=== PATIENT | female | born 1955 | race Caucasian/White ===

== ENCOUNTER 2018-04-29 20:17 | Outpatient (CLI) | payer OTHER ==
--- NOTE | 2018-04-30 02:42 | Ultrasound Report ---
Reason: HX OF THYROID NODULES, LAST US 2014 Procedure Date: 04/29/2018 Accession Number: [id number] / [id number] Procedure: US - Head or Neck Soft Tissue CPT Code: FULL RESULT: EXAM: THYROID ULTRASOUND EXAM DATE: 04/29/2018 09:01 PM. CLINICAL HISTORY: HX OF THYROID NODULES, LAST US 2013. COMPARISON: 12/06/2014 10:57 AM. TECHNIQUE: Real time sonographic imaging of the thyroid was performed by the printer small print shop. Multiple tour sales representative static images were saved for review. FINDINGS: THYROID GLAND: Right Lobe: 4.4 x 2.1 x 1.7 cm, volume 8 cc. Heterogeneous echotexture. Right Lobe Nodules: Small hypoechoic nodules are again seen. The largest now measures 1.1 x 1.0 x 0.7 cm. Left Lobe: 4.6 x 1.8 x 1.7 cm, volume 7 cc. Heterogeneous echotexture. Left Lobe Nodules: Small hypoechoic nodules are again seen, the largest measuring 0.7 x 0.5 x 0.4 cm. Isthmus: 0.3 cm AP. Isthmic Nodules: None. LYMPH NODES: No adenopathy demonstrated in the central or lateral compartment. OTHER: None. IMPRESSION: Small hypoechoic nodules bilaterally. Fine needle aspiration not recommended by BELKIS criteria. Management recommendations are based on 2015 [place] [employer] Management Guidelines for Adult Patients with Thyroid Nodules and Differentiated Thyroid Cancer. RADIA
== END 2018-04-29 20:18 | disposition home or self-care (01) ==
LOC: DI 20:17
PROVIDERS: ATTEND Family Medicine
DX: E04.2 Nontoxic multinodular goiter (principal)
CPT/HCPCS: 76536

== ENCOUNTER 2019-09-10 13:43 | Emergency (ER) | payer BC ==
--- NOTE | 2019-09-10 14:19 | ED Physician Documentation ---
History of Present Illness - Stated complaint Stated Complaint: CHEST PAIN - Chief complaint Chief Complaint: Cardiac - History obtained from History obtained from: Patient - History of Present Illness Timing: How many weeks ago (1) Pain level max: 5 Pain level now: 1 - Additonal information Additional information: 63-year-old female presents the emergency department complaint of chest pain. This is been ongoing for the past week. Happening several times throughout the day. She states initially it started when she was exerting herself she would feel lightheaded, dizzy, short of breath and a tightness across her chest like her clothes were too tight. It is now been occurring at rest over the past 2 da ys. Today she states that the pain increased. Nothing makes worse. It seems to be better with rest, however today that did not improve her symptoms. She has never had a cardiac stress test. 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 No history of acute coronary syndrome. Currently is asymptomatic. Took aspirin prior to arrival Review of Systems Ten Systems: 10 systems reviewed and negative Constitutional: denies: Fever, Chills Ears: denies: Ear pain Nose: denies: Rhinorrhea / runny nose, Congestion Cardiac: denies: Palpitations Respiratory: reports: Dyspnea. denies: Cough, Hemoptysis, Wheezing GI: denies: Abdominal Pain, Nausea, Vomiting, Diarrhea : denies: Dysuria Skin: denies: Rash Musculoskeletal: denies: Neck pain, Back pain Neurologic: denies: Headache PD PAST MEDICAL HISTORY - Past Medical History Past Medical History: Yes - Past Surgical History Past Surgical History: Yes General: Cholecystectomy - Allergies Allergies/Adverse Reactions: Allergies Allergy/AdvReac Type Severity Reaction Status Date / Time hydromorphone [From Dilaudid] Allergy Emesis Verified 09/10/19 13:48 lorazepam Allergy Emesis Verified 09/10/19 13:48 morphine Allergy Emesis Verified 09/10/19 13:48 Penicillins Allergy Anaphylaxis Verified 09/10/19 13:48 - Living Situation Living Situation: reports: With family Living Arrangement: reports: At home - Social History Does the pt smoke?: No Does the pt have substance abuse?: No PD ED PE NORMAL - Vitals Vital signs reviewed: Yes - General General: Alert and oriented X 3, No acute distress, Well developed/nourished - HEENT HEENT: PERRL, Moist mucous membranes - Neck Neck: Supple, no meningeal sign - Cardiac Cardiac: RRR, No murmur, Strong equal pulses - Respiratory Respiratory: No respiratory distress, Clear bilaterally - Abdomen Abdomen: Soft, Non tender, Non distended - Derm Derm: Warm and dry, No rash - Extremities Extremities: No edema, No calf tenderness / cord - Neuro Neuro: Alert and oriented X 3 - Psych Psych: Normal mood, Normal affect Results - Vitals Vitals: Vital Signs - 24 hr 09/10/19 09/10/19 13:48 15:55 Temperature 36.5 C Heart Rate 74 68 Respiratory 14 16 Rate Blood Pressure 139/67 H 130/70 O2 Saturation 97 97 Oxygen O2 Source Room air - EKG (time done) 1400 Rate: Rate (enter#) (68) Rhythm: NSR [place]: Normal Intervals: Normal MT QRS: Normal Ischemia: Normal ST segments - Labs Labs: Laboratory Tests 09/10/19 09/10/19 09/10/19 14:25 14:40 14:40 WBC 7.3 RBC 3.56 L Hgb 11.3 L Hct 34.1 L MCV 95.8 MCH 31.7 H MCHC 33.1 RDW 13.1 Plt Count 401 MPV 9.5 Neut # (Auto) 4.1 Lymph # (Auto) 2.6 [place] # (Auto) 0.5 Eos # (Auto) 0.1 Baso # (Auto) 0.1 Absolute Nucleated RBC 0.00 Nucleated RBC % 0.0 Sodium 139 Potassium 3.9 Chloride 107 Carbon Dioxide 23 Anion Gap 9.0 BUN 19 Creatinine 0.8 Estimated GFR (MDRD) 73 L Glucose 94 Calcium 8.8 Total Bilirubin 0.4 AST 14 ALT 13 Alkaline Phosphatase 68 Troponin I High Sens Total Protein 7.1 Albumin 3.9 Globulin 3.2 Albumin/Globulin Ratio 1.2 Lipase 32 Urine Color LT. YELLOW Urine Clarity CLEAR Urine pH 6.0 Ur Specific [place] <=1.005 Urine Protein NEGATIVE Urine Glucose (UA) NEGATIVE Urine Ketones NEGATIVE Urine Occult Blood NEGATIVE Urine Nitrite NEGATIVE Urine Bilirubin NEGATIVE Urine Urobilinogen 0.2 (NORMAL) Ur Leukocyte Esterase NEGATIVE Ur Microscopic Review NOT INDICATED Urine Culture Comments NOT INDICATED 09/10/19 14:40 WBC RBC Hgb Hct MCV MCH MCHC RDW Plt Count MPV Neut # (Auto) Lymph # (Auto) [place] # (Auto) Eos # (Auto) Baso # (Auto) Absolute Nucleated RBC Nucleated RBC % Sodium Potassium Chloride Carbon Dioxide Anion Gap BUN Creatinine Estimated GFR (MDRD) Glucose Calcium Total Bilirubin AST ALT Alkaline Phosphatase Troponin I High Sens 4.3 Total Protein Albumin Globulin Albumin/Globulin Ratio Lipase Urine Color Urine Clarity Urine pH Ur Specific [place] Urine Protein Urine Glucose (UA) Urine Ketones Urine Occult Blood Urine Nitrite Urine Bilirubin Urine Urobilinogen Ur Leukocyte Esterase Ur Microscopic Review Urine Culture Comments - Rads (name of study) cxr Radiology: Prelim report reviewed, EMP read contemporaneously, See rad report (No acute disease) PD MEDICAL DECISION MAKING - ED course Complexity details: reviewed results, re-evaluated patient, considered differential, d/w patient ED course: Concern for unstable angina. Symptoms seem to be accelerating and now occurring at rest. Discussed the case with Dr. Cunningham, cardiology on-call who recommends transfer to [facility] for Possible cardiac catheterization. Patient will be started on heparin. Discussed the case with Dr. Fitch, hosp italist at [facility] who graciously accepts in transfer at [id number]. COBRA forms completed. Patient is asymptomatic currently. This document was made in part using voice recognition software. While efforts are made to proofread this document, sound alike and grammatical errors may occur. Departure - Departure Disposition: 02 Transfer Acute Care Hosp Clinical Impression: Unstable angina Condition: Stable
--- NOTE | 2019-09-10 14:28 | XRAY Report ---
Reason: chest pain Procedure Date: 09/10/2019 Accession Number: [id number] / [id number] Procedure: XR - Chest 1 View X-Ray CPT Code: 48746 Final Report FULL RESULT: EXAM: CHEST RADIOGRAPHY EXAM DATE: 09/10/2019 02:21 PM. CLINICAL HISTORY: Chest pain. COMPARISON: XR CHEST PA AND LAT 05/27/2009 2:56 PM. TECHNIQUE: 1 view. FINDINGS: Lungs/Pleura: No focal opacities evident. No pleural effusion. No pneumothorax. Mediastinum: Within exam limitations, the cardiomediastinal contour is normal. Other: Dextroscoliosis IMPRESSION: No active cardiopulmonary disease RADIA
[2019-09-10 14:30] LABS: BILIRUBIN,URINE NEGATIVE (NEGATIVE); GLUCOSE, URINE (UA) NEGATIVE (NEGATIVE); KETONES,URINE (UA) NEGATIVE (NEGATIVE); LEUKOCYTE ESTERASE, URINE NEGATIVE (NEGATIVE); NITRITE,URINE NEGATIVE (NEGATIVE); OCCULT BLOOD,URINE NEGATIVE (NEGATIVE); PROTEIN,URINE NEGATIVE (NEGATIVE); UROBILINOGEN,URINE 0.2 (NORMAL) E.U./dL (NORMAL)
[2019-09-10 14:42] LABS: CLARITY,URINE CLEAR (CLEAR)
[2019-09-10 14:54] LABS: BASOPHILS # (AUTO) 0.1 10^3/uL (0.0-0.1); BASOPHILS % (AUTO) 0.8 %; EOSINOPHILS # (AUTO) 0.1 10^3/uL (0.0-0.7); EOSINOPHILS % (AUTO) 1.2 %; HGB - HEMOGLOBIN 11.3 g/dL (12.0-16.0); LYMPHOCYTES # (AUTO) 2.6 10^3/uL (1.5-3.5); LYMPHOCYTES % (AUTO) 35.1 %; MEAN CORPUSCULAR HEMOGLOBIN 31.7 pg (27.0-31.0); MEAN CORPUSCULAR HGB CONC 33.1 g/dL (32.0-36.0); MEAN CORPUSCULAR VOLUME 95.8 fL (81.0-99.0); MEAN PLATELET VOLUME 9.5 fL (7.9-10.8); MONOCYTES # (AUTO) 0.5 10^3/uL (0.0-1.0); MONOCYTES % (AUTO) 6.5 %; NEUTROPHILS # (AUTO) 4.1 10^3/uL (1.5-6.6); NEUTROPHILS % (AUTO) 56.3 %; PLT - PLATELET COUNT 401 10^3/uL (130-450); RED BLOOD COUNT 3.56 10^6/uL (4.20-5.40); RED CELL DISTRIBUTION WIDTH 13.1 % (12.0-15.0); WHITE BLOOD COUNT 7.3 x10^3/uL (4.8-10.8)
[2019-09-10 15:07] LABS: ALBUMIN 3.9 g/dL (3.2-5.5); ALBUMIN/GLOBULIN RATIO 1.2 (1.0-2.2); BILIRUBIN,TOTAL 0.4 mg/dL (0.2-1.0); CALCIUM 8.8 mg/dL (8.5-10.3); CREATININE 0.8 mg/dL (0.4-1.0); TOTAL PROTEIN 7.1 g/dL (6.7-8.2)
[2019-09-10] MEDS ORDERED: HEPARIN 25000UNITS/500ML (D5W) 25,000 UNIT/500 ML BAG IV STA (16:17)
[2019-09-10] MEDS ORDERED: HEPARIN 5,000 UNIT/ML VIAL IVP STA (16:17)
[2019-09-10 17:41] VITALS: BP 107/93
== END 2019-09-10 18:06 | disposition short-term general hospital (02) ==
LOC: ED 13:43
DX: I20.0 Unstable angina (principal)
CPT/HCPCS: 36415; 71045; 80053; 81001; 81003; 83690; 84484; 85025; 87086; 93005; 96374; 99285

== ENCOUNTER 2019-09-10 18:08 | Outpatient (CLI) | payer BC | END 2019-09-10 18:09 | disposition short-term general hospital (02) | LOC: EMS 18:08 | PROVIDERS: ATTEND Surgery | DX: I20.0 Unstable angina (principal) | CPT/HCPCS: A0425; A0426 ==

== ENCOUNTER 2019-11-03 07:53 | Outpatient (CLI) | payer BC ==
[2019-11-03 08:44] VITALS: BP 110/72
--- NOTE | 2019-11-03 08:44 | SLEEP CARE CONSULTATION ---
Information from patient questionnaire entered by Martha Bernal. I have reviewed and concur with the information entered by Martha Bernal. This document represents the service I personally performed and the decisions made by me, Lexy Lee ARNP. History of Present Illness Service Date and Time: 11/03/2019 0753 Reason for Visit: New patient Chief Complaint: reports: Insomnia (3-4 nights out of week unable to go back to sleep after awakening), Unrefreshed sleep (sometimes), Snoring, Excessive daytime sleepiness (sometimes, not every day), Fatigue, Frequent awakenings at night, Other ( sees sudden snort/restless and then go back to sleep) Duration of Symptoms: 2-3 years Usual bedtime: [id number] Time it takes to fall asleep: depends, sometimes 2 hours Snores at night: Yes Observed to quit breathing while asleep: No (sudden snorting with restlessness often per ) Sleeps alone due to snoring: No (but earplugs and noisemaker on) Number of times waking at night: 3-4 Reasons for waking at night: reports: Snoring, Pain (fibromyalgia), Bathroom. denies: Choking, Gasping for air Toss, Turn, or Twitch while sleeping: No Recalls having dreams: Yes Usually gets out of bed at: 0700 Feels refreshed in the morning: No Morning headache: Yes (sometimes; dull roar and takes Excedrin and water to resolve) Sleepy or fatigued during the day: Yes Ever fallen asleep while driving: Yes (has to ice puller and take a short nap at times) Takes day naps: No Dreams during day naps: No Prior sleep studies: No Additional HPI information: Patient working as a home health nurse. She is snoring for last 6-7 years. She is fatigued due to average of 6 hours of sleep nightly. She has several awakenings and is unable to go to sleep, has difficulty shutting her brain off to go to sleep. She has lost 10 pounds of weight over the last 3 months. - Parasomnia Symptoms Ever been unable to move upon waking from sleep: Yes (not for a long time) Walks in sleep: No Talks in sleep: Yes (nightmare yell out and wake up; not recent) Ever acted out dreams in sleep: Yes Ever felt weak in the knees when startled or emotional: Yes Bothered by creepy, crawly, restless sensations in legs: No Problems with memory or concentration: Yes (both) Subjective Initial [place] Sleepiness Scale score: 5 Past Medical History Past Medical History: reports: Claustrophobia, Fibromyalgia, GERD, Other (heart murmur, congenital). 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 Patient is and lives in [place]. Have you smoked in the past 12 months: No Cigarettes per day (20/pack): 7 (1/3rd of pack) Years of smokin (2-3 years) Quit date: 1989 Smoking Pack Years: 0.9 Alcohol use: Yes Alcohol amount and frequency: 1-3 weekend sometimes Caffeine use: Yes Caffeine amount and frequency: 2-3/day Family History Family history of sleep disordered breathing: No Allergies and Home Medications Drug allergies reviewed: Yes (dilaudid, hydromorphone, lorazepam, morphine, penicillin) Home medication list reviewed: Yes (low dose neltrexone 5mg AM, omeprazole, MVT, biotin, immune plus, ibuprofen) Review of Systems Weight gain over past 5 years: 25 Cardiovascular: reports: other (occasional heart flutter, evaluated by learning and development director and cleared). denies: high blood pressure, palpitations, chest pain, irregular heart rate or pulse, leg or foot swelling, have to sleep sitting up Respiratory: denies: shortness of breath, wheeze, chronic cough Gastrointestinal: reports: heartburn, diarrhea. denies: difficulty swallowing Urinary: denies: incontinence, frequency, urgency, impotence, other Neurological: reports: headaches, other (dizziness - new; for past month, not all the time). denies: seizure, head trauma, disorientation, speech dysfunction, gait or balance problems Psychiatric: denies: anxiety, depression Ear/Nose/Throat: reports: dry mouth/throat (after sleeping, sleeps with mouth open), wisdom teeth removed. denies: nasal congestion, sinus problems, nose bleeds (sometimes in winter), hoarseness, injury to nose, tonsillectomy Endocrine: reports: history of goiter. denies: too hot or cold, excessive thirst, increased appetite, unexplained weakness Musculoskeletal: reports: joint pain, back pain Immunologic: reports: itching, allergies to food or environment (scothbroom) Physical Exam Blood Pressure: 110/72 Heart Rate: 64 O2 Saturation: 98 Height: 5 ft 4 in Weight: 155 lb 12.8 oz Body Mass Index: 26.7 BMI Classification: Overweight Neck circumference: 15 HEENT: No craniofacial malformation Nostrils: patent to airflow Turbinates: normal Septum: midline Mouth and throat: normal Soft palate: normal Hard palate: normal Uvula: normal Uvula visualization: 50% Mallampati Class II Tongue: normal in size Tonsils: 1+ Chin and jaw: normal size and position Neck: normal w/o lymphadenopathy or thyromegaly Heart: regular rate and rhythm Lungs: clear bilaterally Impression and Plan 1. Suspected Obstructive Sleep Apnea-Hypopnea Syndrome, as suggested by a history of loud and irregular snoring, gasping or choking in sleep, morning headache, frequent awakening during the night, unrefreshed sleep, cognitive impairment, and excessive daytime sleepiness. I recommend proceeding to polysomnography to confirm the diagnosis and to assess severity. If the patient has significant sleep disordered breathing, a manual CPAP titration study will also be performed to find the optimal treatment pressure. I informed the patient of what the sleep studies involve and after some discussion, obtained agreement to proceed. The pathophysiology of obstructive sleep apnea-hypopnea syndrome was discussed with the patient and health risks of cardiovascular and cerebrovascular disease if not treated. AAS brochure for obstructive sleep apnea-hypopnea syndrome given and reviewed. Risks of drowsy driving discussed in detail and patient advised to avoid long distance driving and to ice puller at the first sign of drowsiness. Patient agreed to plan. * Schedule polysomnography +- manual CPAP titration study and return in 1-2 weeks after the study to discuss result and initiate therapy. * Avoid long distance driving or driving when feeling sleepy. * Avoid alcohol, sedative and muscle relaxant around bedtime. * Continue to lose weight. * Review instructions provided by trained office staff on how to prepare for the sleep study. * Return for follow-up after sleep study completed. Visit Type: In Office Time Spent with Patient (minutes): 33 Provider Statement: I spent 100% of the Face to Face Visit with the patient with greater than 50% spent counseling the patient and coordination of care.
== END 2019-11-03 07:54 | disposition home or self-care (01) ==
LOC: SC 07:53
PROVIDERS: ATTEND Nurse Practitioner Family
DX: G47.10 Hypersomnia, unspecified (principal); G47.8 Other sleep disorders; R51 Headache; R41.89 Other symptoms and signs involving cognitive functions and awareness; R06.83 Snoring; E66.3 Overweight; Z68.26 Body mass index [BMI] 26.0-26.9, adult
CPT/HCPCS: 99204; 99212

== ENCOUNTER → 2019-11-29 | Outpatient (CLI) | payer BC | LOC: SC 19:30 | PROVIDERS: ATTEND Internal Medicine Pulmonary Disease | DX: G47.33 Obstructive sleep apnea (adult) (pediatric) (principal) | CPT/HCPCS: 95806 ==

== ENCOUNTER 2019-12-14 07:53 | Outpatient (CLI) | payer BC ==
--- NOTE | 2019-12-14 08:20 | SLEEP CARE CONSULTATION ---
Information from patient questionnaire entered by Zena Terry. I have reviewed and concur with the information entered by Zena Terry. This document represents the service I personally performed and the decisions made by , Lexy Lee ARNP. History of Present Illness Service Date and Time: 12/14/2019 0753 Initial [place] Sleepiness Scale score: 5 (in 2019) Additional HPI information: LORRI JOHNSON returns for follow up and results of the recently performed home sleep study. I explained the pathophysiology behind obstructive sleep apnea. We then spent quite a bit of time discussing different treatment options. For mild obstructive sleep apnea, surgery and oral appliance are alternatives to nasal CPAP therapy but in moderate or severe cases, nasal CPAP is the most effective and reliable treatment. After some discussion, the patient opted to go with the nasal CPAP therapy. Nasal autoCPAP set at 4-15 cmH20 will be ordered with rationale explained. A manual titration study will be ordered if unable to find optimal pressure with office adjustments. I explained how CPAP machine works with sample devices [employer] Dreamstation and [employer] [id number] and what to expect when using the machine. Using CPAP every night in order to get used to it was emphasized. Patient advised to put CPAP mask on before getting into bed so as not to fall asleep without CPAP. To assist acclimation to CPAP use, it could also be used for a short time during day while reading or watching TV. The patient was instructed to call the CPAP supplier to discuss any mechanical problem that may occur. If the mask given is uncomfortable or is difficult to keep on through the night even with adjustment, contact the CPAP supplier as many will replace with another mask style if notified before 30 days. If snoring or perceives is not getting enough air or too much air from the machine, notify this office. AASM patient education PAP tips reviewed and given to patient. Patient counseled not drink alcohol less than 4 hours before bedtime as it can increase snoring and apnea. Patient was cautioned about risks of drowsy driving until sleepiness symptoms resolve. Sleep Study - Results Type of Sleep Study: Home sleep study Prior sleep studies: No Polysomnography/Home Sleep Study results: SLEEP TIME AND EFFICIENCY: The sleep study recording began at 10:18:41 PM and ended at 07:34:19 AM. Total recording time was 555.6 minutes. The total sleep time was 516.5 minutes. The sleep efficiency was 93.0 percent. The patient spent 516.5 minutes supine, and spent 0.0 minutes non-supine. The patients own estimate of sleep time was 9.30 hours. RESPIRATORY DATA: The AHI in this report is indexed to sleep time based on actigraphy. The AASM defines this as CLAIR. The AHI on this type 3 Home Sleep Study may understate the AHI determined on a type 1 or 2 study, since EEG is not monitored resulting in the inability to score non-desaturating hypopneas. Based on 4% Calculation: The AHI4% calculation of 13.8 per hour of recording time was based on a total of 102 scored apneas and 17 scored hypopneas with 4% desaturations. Supine AHI4%: 13.8 per hour. Non-supine AHI4%: N/A per hour. Oxygen Summary: Patient's baseline O2 saturation was 97.6 %. The patient spent 2.2 minutes at an oxygen saturation less than 90%, and 0.1 minutes less than 85%. The desaturation index was 5.8 events per hour sleep time. The lowest saturation was 84.0 %. SNORING: The percent of the study time spent snoring was 0.1 %. The Snoring Count was 21 . The Snoring Index was 2.4 . PULSE RATE REVIEW: The mean heart rate was 64 beats per minute. The rate ranged from a low of 45 to a high of 90 beats per minute. DIAGNOSIS CODE: This patient has mild obstructive sleep apnea (CD-10 G47.33) Allergies and Home Medications Drug allergies reviewed: Yes Home medication list reviewed: Yes (no changes) Review of Systems Review of systems same as previous: Yes (no changes) Physical Exam Heart Rate: 63 O2 Saturation: 98 Height: 5 ft 4 in Weight: 152 lb Body Mass Index: 26.1 BMI Classification: Overweight Impression and Plan 1. Obstructive Sleep Apnea-Hypopnea Syndrome, mild, with lowest oxygen saturation of 84%. Obviously this is the cause of the patients symptoms of unrefreshed sleep, and excessive daytime sleepiness. Positive pressure therapy could benefit her GERD. As mentioned above, the patient will be started on nasal autoCPAP therapy with pressure set at 4-15 cmH2O. A manual titration study will be completed if unable to find optimal treatment pressure with office adjustments. Compliance guidelines also reviewed. A copy of compliance guidelines will be given for reference at check out. She cannot sleep on her side because of hip pain but can try to tilt off of her back some to try keeping her supine while sleeping. * Nasal auto CPAP therapy, pressure at 4-15 cm H2O. * Continue efforts to lose weight. * Avoid alcohol consumption near bedtime. * Avoid supine sleep until using CPAP. * The patient is again cautioned about driving until sleepiness completely resolves. * Return one month after CPAP obtained. I will assess response to therapy and compliance at that time. Visit Type: In Office Time Spent with Patient (minutes): 18 Provider Statement: I spent 100% of the Face to Face Visit with the patient with greater than 50% spent counseling the patient and coordination of care.
== END 2019-12-14 07:54 | disposition home or self-care (01) ==
LOC: SC 07:53
PROVIDERS: ATTEND Nurse Practitioner Family
DX: G47.33 Obstructive sleep apnea (adult) (pediatric) (principal); E66.3 Overweight; Z68.26 Body mass index [BMI] 26.0-26.9, adult
CPT/HCPCS: 99212; 99213

== ENCOUNTER 2020-04-05 08:17 | Outpatient (CLI) | payer BC ==
--- NOTE | 2020-04-05 08:43 | SLEEP CARE CONSULTATION ---
Information from patient questionnaire entered by Zena Terry. I have reviewed and concur with the information entered by Zena Terry. This document represents the service I personally performed and the decisions made by , Lexy Lee ARNP. History of Present Illness Service Date and Time: 04/05/2020 08 Previous diagnosis: Mild, Obstructive Sleep Apnea-Hypopnea Syndrome AHI: 13.8 (in 2019) Reason for follow up: first compliance Equipment type: CPAP Equipment obtained from: [employer] (got initial supplies) Mask style: Nasal (over the nose) Backup mask available: No (will keep mask when they are replaced) Last cushion change: 2 months Prior sleep studies: Yes Year and Where: 2019 - [facility] Type of Sleep Study: Home sleep study HPI additional information: LORRI JOHNSON was diagnosed to have mild, AHI 13.8, obstructive sleep apnea- hypopnea syndrome and returned today for CPAP therapy first compliance follow- up. CPAP Compliance Data - Data Reviewed with Patient Average duration of nightly device use: 6 hr 53 min Compliance rate %: 97 Current pressure setting (cmH2O): 4-15 (median 4.8. 95th 7.7, max 8.9) Humidity settin Average residual AHI: 0.3 Central apnea: 0.0 Obstructive apnea: 0.2 Average large leak: 1.2 L/min Subjective Missed days of use due to: reports: family emergency, travel Patient concerns: reports: mask discomfort (occasionally; just where it rests on cheekbone can get sore), nasal congestion (occasionally). denies: aerophagia, air blowing in eyes, mask leak noise, condensation in mask/hose, dry mouth, nose, throat, epistaxis, other Observed to snore while using device: No Current pressure setting perceived as: comfortable On therapy, patient: reports: sleeping better, awakening more refreshed, being more awake and alert during the day, more rested overall. denies: drowsiness while driving Initial [place] Sleepiness Scale score: 5 (in 2019) Current [place] Sleepiness Scale score: 3 Allergies and Home Medications Drug allergies reviewed: Yes (listed in chart) Home medication list reviewed: Yes (no changes) Review of Systems Review of systems same as previous: Yes (no changes) Physical Exam Heart Rate: 84 O2 Saturation: 99 Height: 5 ft 4 in Weight: 152 lb Body Mass Index: 26.1 BMI Classification: Overweight Impression and Plan 1. Obstructive Sleep Apnea-Hypopnea Syndrome, mild, with good treatment compliance and excellent apnea control. On CPAP therapy, the patient has better sleep quality and is more rested overall. I will adjust pressure to reflex the pressures being utilized to 5-9 cmH2O. She has had some occasional nasal congestion when using the CPAP. Nasal congestion can be reduced with increasing the CPAP humidity as shown on sample device. The heated hose can be adjusted higher if condensation with higher humidity setting. Saline nasal spray used prior to CPAP can help clear nasal secretions and wash off any nasal allergens to facilitate nasal breathing. Verbal instructions given on how to change humidity and heated hose settings with rationale explaining why to change. Patient verbalized understanding. Patient's apnea severity and rationale for treatment to reduce apnea, improve sleep quality and reduce cardiovascular and cerebrovascular events was reviewed. I also reviewed the benefit of consistent device use of CPAP for gastric reflux. * Change auto CPAP pressure to 5-9 cmH2O * Notify me if snoring with mask or feeling that the pressure is too much or too little * Attempt to lose weight * Call this office if any problems using CPAP * Return for follow up in 1-2 months, or sooner if concerns arise Counseling Topics: Spare mask, Weight loss health impact Visit Type: In Office Time Spent with Patient (minutes): 16 Provider Statement: I spent 100% of the Face to Face Visit with the patient with greater than 50% spent counseling the patient and coordination of care.
== END 2020-04-05 08:18 | disposition home or self-care (01) ==
LOC: SC 08:17
PROVIDERS: ATTEND Nurse Practitioner Family
DX: G47.33 Obstructive sleep apnea (adult) (pediatric) (principal); E66.3 Overweight; Z68.26 Body mass index [BMI] 26.0-26.9, adult
CPT/HCPCS: 99212; 99213

== ENCOUNTER 2021-08-16 12:07 | Outpatient (CLI) | payer BC | END 2021-08-16 12:08 | disposition home or self-care (01) | LOC: DI.N 12:07 | PROVIDERS: ATTEND Physician Assistant | DX: Z53.9 Procedure and treatment not carried out, unspecified reason (principal) ==

== ENCOUNTER 2021-08-16 12:18 | Outpatient (CLI) | payer BC ==
--- NOTE | 2021-08-16 14:15 | XRAY Report ---
PROCEDURE: Knee 3 View BILAT INDICATIONS: BILATERAL KNEE PAIN TECHNIQUE: 3 views of the right knee and 3 views of the left knee were acquired. COMPARISON: None. FINDINGS: Right: No fractures or dislocations. Mild joint space narrowing with weightbearing. Small periartic ular osteophytes. Small joint effusion. No suspicious soft tissue calcifications. Left: No fractures or dislocations. Mild joint space narrowing with weightbearing. Small periartic ular osteophytes. Trace joint effusion. No suspicious soft tissue calcifications. IMPRESSION: 1. Mild degenerative joint disease laterally. 2. Small right knee joint effusion and trace left knee joint effusion. Reviewed by: Agatha Kaiser MD on 08/16/2021 2:14 PM PDT Approved by: Agatha Kaiser MD on 08/16/2021 2:14 PM PDT Station ID: [id number]
== END 2021-08-16 23:59 | disposition home or self-care (01) ==
LOC: DI.N 12:18
PROVIDERS: ATTEND Physician Assistant
DX: M17.0 Bilateral primary osteoarthritis of knee (principal); M25.462 Effusion, left knee; M25.461 Effusion, right knee

== ENCOUNTER 2021-09-01 10:09 | Outpatient (CLI) | payer BC ==
--- NOTE | 2021-09-01 18:21 | XRAY Report ---
PROCEDURE: Ankle 3 View LT INDICATIONS: ANKLE PAIN, LEFT TECHNIQUE: 3 views of the ankle were acquired. COMPARISON: None FINDINGS: Bones: Subtle nondisplaced oblique or spiral fracture of the distal shaft of the fibula. No other fra ctures or dislocations. Ankle mortise is normally aligned. No suspicious bony lesions. Soft tissues: No tibiotalar joint effusion. Achilles tendon appears normal. IMPRESSION: Nondisplaced distal shaft fracture of the fibula. Reviewed by: Brown Triana MD on 09/01/2021 6:20 PM PDT Approved by: Brown Triana MD on 09/01/2021 6:20 PM PDT Station ID: [id number]
== END 2021-09-01 23:59 | disposition home or self-care (01) ==
LOC: DI.N 10:09
PROVIDERS: ATTEND Family Medicine
DX: S82.832A Other fracture of upper and lower end of left fibula, initial encounter for closed fracture (principal)

== ENCOUNTER 2021-09-17 06:00 | Outpatient (CLI) | payer OTHER ==
--- NOTE | 2021-09-17 16:10 | XRAY Report ---
PROCEDURE: Ankle 3 View LT INDICATIONS: ANKLE FX TECHNIQUE: 3 views of the ankle were acquired. COMPARISON: 09/01/2021 FINDINGS: Bones: Healing spiral fracture of the distal fibula with mild smooth callus formation. The fracture p iona is blurred, but still visible. Ankle mortise remains intact. Moderate plantar calcaneal spur and mild Achilles tendon enthesopathy. No suspicious bony lesions. Soft tissues: No tibiotalar joint effusion. Achilles tendon appears normal. IMPRESSION: Healing distal fibular fracture with anatomic alignment. Reviewed by: Lilly Ruiz MD on 09/17/2021 4:09 PM PDT Approved by: Lilly Ruiz MD on 09/17/2021 4:09 PM PDT Station ID: [id number]
--- NOTE | 2021-09-17 16:11 | XRAY Report ---
PROCEDURE: Foot 3 View LT INDICATIONS: LEFT FOOT PAIN TECHNIQUE: 3 views of the foot were acquired. COMPARISON: None FINDINGS: Bones: No fractures or dislocations. Moderate size plantar calcaneal spur and trace calcification a t the Achilles tendon insertion. No suspicious bony lesions. Soft tissues: No tibiotalar joint effusion. Achilles tendon appears normal. IMPRESSION: 1. Intact left foot. 2. Plantar calcaneal spur. 3. Trace calcification at the Achilles tendon insertion. Correlate with site of pain. Reviewed by: Lilly Ruiz MD on 09/17/2021 4:10 PM PDT Approved by: Lilly Ruiz MD on 09/17/2021 4:10 PM PDT Station ID: [id number]
== END 2021-09-17 23:59 | disposition home or self-care (01) ==
LOC: DI.WOS 06:00
PROVIDERS: ATTEND Physician Assistant Surgical
DX: S82.832D Other fracture of upper and lower end of left fibula, subsequent encounter for closed fracture with routine healing (principal); M77.32 Calcaneal spur, left foot

== ENCOUNTER 2021-10-18 08:00 | Outpatient (CLI) | payer OTHER ==
--- NOTE | 2021-10-18 12:30 | XRAY Report ---
PROCEDURE: Ankle 3 View LT INDICATIONS: ANKLE FRACTURE TECHNIQUE: 3 views of the ankle were acquired. COMPARISON: Left ankle radiographs 09/17/2021. FINDINGS: Bones: There is increased callus formation about the distal fibula oblique fracture. Stable anatomic alignment. No dislocation. Ankle mortise is normally aligned. No suspicious bony lesions. Soft tissues: No tibiotalar joint effusion. Achilles tendon appears normal. IMPRESSION: Ongoing healing at the distal fibula fracture. Reviewed by: Mikey Noble MD on 10/18/2021 12:28 PM PDT Approved by: Mikey Noble MD on 10/18/2021 12:28 PM PDT Station ID: [id number]
== END 2021-10-18 23:59 | disposition home or self-care (01) ==
LOC: DI.WOS 08:00
PROVIDERS: ATTEND Orthopaedic Surgery
DX: S82.65XD Nondisplaced fracture of lateral malleolus of left fibula, subsequent encounter for closed fracture with routine healing (principal)